=== PATIENT | female | born 1985 ===

== ENCOUNTER 2024-04-07 06:24 | Day surgery (SDC) | payer OTHER ==
[~2024-04-07] VITALS: Ht 165.1 cm; Wt 70.5 kg
[~2024-04-07 06:24] MED LIST: AZIT250 PO; CEPH500 PO; CODGUAEL PO; HYDACE5 PO; Lactated Ringer's 1,000 ML IV ONE; MEDR150I IM; SULTRIDS PO
[2024-04-07] MEDS ORDERED: Vitamin C100 M1 (06:59)
[2024-04-07] MEDS ORDERED: DHEA (06:59)
[2024-04-07] MEDS ORDERED: ERGO400 (06:59)
[2024-04-07] MEDS ORDERED: Vitamin B Comple1 EA (06:59)
[2024-04-07] MEDS ORDERED: EPINEPhrine HCl 1 MG / ML 30ML Vial ONE (07:02)
[2024-04-07] MEDS ORDERED: propofoL 20 ML IV ONE ×2 (07:10→07:29)
[2024-04-07] MEDS ORDERED: FentaNYL Citrate 50 MCG/ML 2 ML Injection ONE ×2 (07:10→09:30)
[2024-04-07] MEDS ORDERED: Rocuronium Bromide 10 MG/ML 5ML Injection IV ONE (07:12)
[2024-04-07] MEDS ORDERED: Lactated Ringer's 1,000 ML IV ONE ×3 (07:19→11:32)
[2024-04-07] MEDS ORDERED: Dexamethasone Sod Phos 10 MG/ML 1ML VIAL ONE (09:13)
[2024-04-07] MEDS ORDERED: Bupivacaine 0.5% W/EPI 1:200000 SDV 30ML INJ ONE (09:37)
[2024-04-07] MEDS ORDERED: Sugammadex Sodium 200 MG/2ML SDV (100 MG/ML) ONE (09:40)
[2024-04-07] MEDS ORDERED: Ondansetron HCl 2 MG / ML 2ML Vial ONE ×2 (09:41→10:23)
--- NOTE | 2024-04-07 10:04 | NUR ---
04/07/24 1004 RYAN WARD PT FEELS THE NEED TO URINATE THOUGH CATHETER WAS JUST REMOVED. REPEATED MULTIPLE TIMES THAT SHE SHOULDN'T HAVE TO BUT PT WANTED TO BE ON BEDPAN. PT STATES THAT ITS HARD TO TAKE A DEEP BREATH. WILL CONTINUE TO MONITOR
[2024-04-07] MEDS ORDERED: OxyCODONE HCL 5 MG TAB ONE (10:17)
[2024-04-07] MEDS ORDERED: Acetaminophen 500 MG Tab ONE (10:18)
[2024-04-07] MEDS ORDERED: Ketorolac Tromethamine 30mg Vial ONE (10:18)
--- NOTE | 2024-04-07 10:33 | NUR ---
04/07/24 1033 RYAN WRAD AFTER ABOUT 5MIN, PT STATES THAT CRAMPING IS STARTING TO GO AWAY. WAS 11/02 BUT NOW TOLERABLE. 10/03. PT DECLINES NAUSEA MEDICINE AT THIS TIME. SHE FEELS THAT SHE IS/WAS NAUSEOUS SINCE SHE HAD AN EMPTY STOMACH
== END 2024-04-07 11:30 | disposition home or self-care (01) ==
LOC: ORSCSDS 06:24
PROVIDERS: Obstetrics & Gynecology
PROC: 0UBF4ZX Excision of Cul-de-sac, Percutaneous Endoscopic Approach, Diagnostic (ICD-10-PCS; principal; 2024-04-07 07:30)
DX: N80.329 Endometriosis of the posterior cul-de-sac, unspecified depth (principal); F90.9 Attention-deficit hyperactivity disorder, unspecified type; Z79.899 Other long term (current) drug therapy; Z87.891 Personal history of nicotine dependence
CPT/HCPCS: 88305; A9270; J0171; J1100; J1885; J2405; J2704; J3010; J7120